=== PATIENT | male | born 1965 | race Caucasian/White ===

== ENCOUNTER 2018-11-02 17:25 | Emergency (ER) | payer OTHER ==
[2018-11-02 17:43] VITALS: PULSE 65; RESP 18
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
[2018-11-02 19:54] VITALS: BP 155/89; TEMP 97.9
--- NOTE | 2018-11-02 20:05 | XR ---
PROCEDURE: XR shoulder complete RT - 3V DATE AND TIME: 11/02/2018 6:38 PM CLINICAL INDICATION: PHH; Pain TECHNIQUE: Department protocol COMPARISON: None FINDINGS: There is no fracture or malalignment. The soft tissues are unremarkable. Mild glenohumeral and acromioclavicular joint degenerative changes appreciated. IMPRESSION: Mild osteoarthritis. No other findings.
== END 2018-11-02 20:25 | disposition home or self-care (01) ==
LOC: EC 17:25
DX: M54.10 Radiculopathy, site unspecified (principal); M25.511 Pain in right shoulder; F17.200 Nicotine dependence, unspecified, uncomplicated
CPT/HCPCS: 99283